=== PATIENT | female | born 1970 ===

== ENCOUNTER 2020-11-23 18:13 | Emergency (ER) | payer BC ==
[~2020-11-23] VITALS: Ht 162.6 cm; Wt 92.7 kg
[2020-11-23 18:17] VITALS: TEMP 98.1
[2020-11-23] MEDS ORDERED: ZOFRAN ODT4 MG PO (19:19)
[2020-11-23 19:50] VITALS: BP 121/78; PULSE 78
== END 2020-11-23 19:50 | disposition home or self-care (01) ==
LOC: COL.ER 18:13
DX: R51.9 Headache, unspecified (principal)
CPT/HCPCS: J1885; J2405; J7030